=== PATIENT | male | born 1995 | race Two or more races ===

== ENCOUNTER 2019-10-28 08:59 | Emergency (ER) | payer OTHER ==
[2019-10-28 09:06] VITALS: BP 118/80; PULSE 73; TEMP 97.4; BMI 34.4
--- NOTE | 2019-10-28 09:54 | PDOC ---
History of Present Illness - General Chief Complaint: Injury Stated Complaint: FALL Time Seen by Provider: 10/28/19 09:25 History Source: Patient - History of Present Illness Initial Comments: 10/28/19 11:08 24 year old male [place] c/o left ankle pain reports falling in a hole while at work c/o left ankle pain worse with weight bearing Past History - Past Medical History Allergies/Adverse Reactions: Allergies Allergy/AdvReac Type Severity Reaction Status Date / Time No Known Allergies Allergy Verified 10/28/19 09:06 COPD: No - Psycho Social/Smoking Cessation Hx Smoking History: Never smoked Hx Alcohol Use: No Drug/Substance Use Hx: No Review of Systems - Review of Systems Able to Perform ROS?: Yes Is the patient limited Greek proficient: No Constitutional: No: Symptoms Reported, See HPI, Chills, Diaphoresis, Fever, Loss of Appetite, Malaise, Night Sweats, Weakness, Weight Stable, Unintentional Wgt. Loss, Unexplained wgt Loss, Other *Physical Exam - Vital Signs Last Vital Signs Temp Pulse Resp BP Pulse Ox 97.4 F L 73 16 118/80 99 10/28/19 09:04 10/28/19 09:04 10/28/19 09:04 10/28/19 09:04 10/28/19 09:04 - Physical Exam General Appearance: Yes: Appropriately Dressed Musculoskeletal: positive: Normal Inspection, Other (right ankle pain, full rom no deformity) Extremity: positive: Normal Capillary Refill, Normal Range of Motion Neurologic: positive: Fully Oriented, Alert, Normal Mood/Affect ED Progress Note - Progress Note Progress Note: 10/28/19 13:19 left ankle sprain P: xray: no acute fracture ortho follow up RICE ankle stirrup given Discharge - Discharge Information Problems reviewed: Yes Clinical Impression/Diagnosis: Left ankle sprain Qualifiers: Encounter type: initial encounter Involved ligament of ankle: posterior talofibular ligament Qualified Code(s): S93.492A - Sprain of other ligament of left ankle, initial encounter Disposition: HOME - Follow up/Referral Referrals: Charles Ozuna MD [Staff Physician] - Call tomorrow - Patient Discharge Instructions Patient Printed Discharge Instructions: Ankle Sprain Additional Instructions: Apply ice to the area for the first 24 hours. Then alternate with ice and heat after. Take ibuprofen every 6 hours as needed for pain. Follow-up with an orthopedic doctor if symptoms persist. A referral was given to you today. Return to the emergency room for any worsening symptoms. - Post Discharge Activity Work/Back to School Note: Back to Work
[2019-10-28] MEDS ORDERED: IBUPROFEN 600 MG TABLET (FP) PO ONE ×2 (09:55→10:17)
== END 2019-10-28 11:29 | disposition home or self-care (01) ==
LOC: JERFT 08:59
DX: S93.492A Sprain of other ligament of left ankle, initial encounter (principal); W17.2XXA Fall into hole, initial encounter; Y93.89 Activity, other specified; Y92.89 Other specified places as the place of occurrence of the external cause; Y99.0 Civilian activity done for income or pay
CPT/HCPCS: 73610-TC-LT-FY; 73630-TC-LT; 99282-25

== ENCOUNTER 2020-11-17 12:28 | Inpatient (IN) | payer BC, OTHER ==
[2020-11-17] MEDS ORDERED: DEXAMETHASONE SOD PHOSPHATE 10 MG/1 ML VIAL IVPUSH ONE (12:41)
[2020-11-17] MEDS ORDERED: SODIUM CHLORIDE 0.9% 500 ML INFUS.BAG IV ONE (12:46)
[2020-11-17] MEDS ORDERED: DEXAMETHASONE SOD PHOSPHATE 10 MG/1 ML VIAL ONE (12:50)
[2020-11-17] MEDS ORDERED: ACETAMINOPHEN INJECTION 100 ML IVPB ONE (12:50)
[2020-11-17] MEDS ORDERED: ACETAMINOPHEN 1000 MG/100 ML BAG IVPB ONE (12:55)
[2020-11-17 13:36] LABS: INR 1.24 (0.83-1.09); PROTHROMBIN TIME (PATIENT) 15.2 SEC (9.7-13.0)
[2020-11-17 13:37] LABS: BASO % 0.4 % (0-2.0); HEMATOCRIT 47.3 % (35.4-49); HEMOGLOBIN 15.8 GM/dL (11.7-16.9); LYMPH % 10.7 % (8-40); MCH 27.4 pg (25.7-33.7); MCHC 33.5 g/dl (32.0-35.9); MEAN CELL VOLUME 81.8 fl (80-96); MEAN PLT VOLUME 7.7 fl (7.5-11.1); MONO % 7.4 % (3.8-10.2); NEUT % 81.5 % (42.8-82.8); PLATELET COUNT 264 K/MM3 (134-434); RBC 5.78 M/mm3 (4.00-5.60); RDW 13.1 % (11.9-15.9); WHITE BLOOD COUNT 12.7 K/mm3 (4.0-10.0)
[2020-11-17 13:47] LABS: CHLORIDE 98 mmol/L (98-107); SODIUM 133 mmol/L (136-145)
[2020-11-17 13:49] LABS: CALCIUM 8.6 mg/dL (8.5-10.1)
[2020-11-17 13:50] LABS: ALBUMIN 3.3 g/dl (3.4-5.0); ANION GAP 6 MMOL/L (8-16); CO2 29 mmol/L (21-32); GLUCOSE,RANDOM 89 mg/dL (74-106); MAGNESIUM 2.5 mg/dL (1.8-2.4)
[2020-11-17 13:53] LABS: CREATININE 1.2 mg/dL (0.55-1.3); SGOT/AST 22 U/L (15-37); SGPT/ALT 36 U/L (13-61)
[2020-11-17 13:55] LABS: ALK PHOS 67 U/L (45-117); TOT PROT 7.6 g/dl (6.4-8.2)
[2020-11-17 13:57] LABS: LDH 236 U/L (87-246)
[2020-11-17 14:03] LABS: BILIRUBIN,TOTAL 0.4 mg/dL (0.2-1)
[2020-11-17] MEDS ORDERED: AZITHROMYCIN IVPB 500 MG/250 ML BAG IVPB ONE ×2 (18:47→19:15)
[2020-11-17] MEDS ORDERED: ACETAMINOPHEN 325 MG TABLET (FP) PO PRN (18:49)
[2020-11-17] MEDS ORDERED: ALBUTEROL SO4 HFA INHALER IH PRN (18:51)
[2020-11-17] MEDS ORDERED: DEXAMETHASONE SOD PHOSPHATE 4 MG/1 ML VIAL ONE (19:14)
[2020-11-17] MEDS ORDERED: CHOLECALCIFEROL (VIT D3) 1,000 UNIT (25 MCG) TABLET ONE (19:14)
[2020-11-17] MEDS: DEXAMETHASONE SOD PHOSPHATE 4 MG/1 ML VIAL IVPUSH SCH (19:25)
[2020-11-17] MEDS: CHOLECALCIFEROL (VIT D3) 1,000 UNIT (25 MCG) TABLET PO SCH (19:25)
[2020-11-17] MEDS ORDERED: ASCORBIC ACID 500 MG TABLET (FP) ONE (22:13)
[2020-11-17] MEDS ORDERED: ZINC SULFATE 220 MG CAPSULE (FP) ONE (22:14)
[2020-11-17] MEDS: ASCORBIC ACID 500 MG TABLET (FP) PO SCH (22:16)
[2020-11-17] MEDS: ZINC SULFATE 220 MG CAPSULE (FP) PO SCH (22:16)
[2020-11-18 08:24] LABS: BASO % 0.2 % (0-2.0); CHLORIDE 104 mmol/L (98-107); HEMATOCRIT 45.1 % (35.4-49); HEMOGLOBIN 15.2 GM/dL (11.7-16.9); LYMPH % 7.4 % (8-40); MCH 27.5 pg (25.7-33.7); MCHC 33.8 g/dl (32.0-35.9); MEAN CELL VOLUME 81.1 fl (80-96); MEAN PLT VOLUME 7.4 fl (7.5-11.1); MONO % 4.4 % (3.8-10.2); PLATELET COUNT 251 K/MM3 (134-434); RBC 5.55 M/mm3 (4.00-5.60); RDW 12.9 % (11.9-15.9); SODIUM 139 mmol/L (136-145); WHITE BLOOD COUNT 13.1 K/mm3 (4.0-10.0)
[2020-11-18 08:27] LABS: CALCIUM 8.3 mg/dL (8.5-10.1)
[2020-11-18 08:28] LABS: ANION GAP 8 MMOL/L (8-16); BLOOD UREA NITROGEN 18.7 mg/dL (7-18); CO2 28 mmol/L (21-32); GLUCOSE,RANDOM 128 mg/dL (74-106)
[2020-11-18 08:31] LABS: CREATININE 0.7 mg/dL (0.55-1.3); SGOT/AST 15 U/L (15-37); SGPT/ALT 37 U/L (13-61)
[2020-11-18 08:33] LABS: BILIRUBIN,TOTAL 0.4 mg/dL (0.2-1); TOT PROT 7.2 g/dl (6.4-8.2)
[2020-11-18 08:34] LABS: ALK PHOS 67 U/L (45-117)
[2020-11-18] MEDS: DEXAMETHASONE SOD PHOSPHATE 4 MG/1 ML VIAL IVPUSH SCH (09:35)
[2020-11-18] MEDS: ENOXAPARIN NA (PORCINE) 40 MG/0.4 ML DISP.SYRIN SQ SCH (09:35)
[2020-11-18] MEDS: ZINC SULFATE 220 MG CAPSULE (FP) PO SCH ×3 (09:35→21:01)
[2020-11-18] MEDS: ASCORBIC ACID 500 MG TABLET (FP) PO SCH ×4 (09:35→21:01)
[2020-11-18] MEDS: CHOLECALCIFEROL (VIT D3) 1,000 UNIT (25 MCG) TABLET PO SCH (09:36)
[2020-11-18] MEDS: AZITHROMYCIN IVPB 250 MG in DEXTROSE 5%-WATER - 250 ML IVPB SCH (10:17)
[2020-11-18] MEDS ORDERED: REMDESIVIR 200 MG in SODIUM CHLORIDE 210 ML IVPB ONE (17:00)
[2020-11-19 09:21] LABS: BASO % 0.5 % (0-2.0); HEMATOCRIT 43.5 % (35.4-49); HEMOGLOBIN 14.2 GM/dL (11.7-16.9); LYMPH % 5.4 % (8-40); MCH 26.9 pg (25.7-33.7); MCHC 32.7 g/dl (32.0-35.9); MEAN CELL VOLUME 82.2 fl (80-96); MEAN PLT VOLUME 7.9 fl (7.5-11.1); MONO % 4.3 % (3.8-10.2); NEUT % 89.8 % (42.8-82.8); PLATELET COUNT 293 K/MM3 (134-434); RBC 5.29 M/mm3 (4.00-5.60); WHITE BLOOD COUNT 25.4 K/mm3 (4.0-10.0)
[2020-11-19 09:25] LABS: ALBUMIN 2.8 g/dl (3.4-5.0); BLOOD UREA NITROGEN 14.5 mg/dL (7-18); CALCIUM 8.1 mg/dL (8.5-10.1)
[2020-11-19 09:28] LABS: CREATININE 0.9 mg/dL (0.55-1.3)
[2020-11-19 09:30] LABS: BILIRUBIN,TOTAL 0.3 mg/dL (0.2-1); TOT PROT 6.7 g/dl (6.4-8.2)
[2020-11-19] MEDS ORDERED: PT OWN MED DRAWER 7, Y5N ONE ×2 (09:48→09:53)
[2020-11-19] MEDS: ASCORBIC ACID 500 MG TABLET (FP) PO SCH ×2 (09:51→22:17)
[2020-11-19] MEDS: ENOXAPARIN NA (PORCINE) 40 MG/0.4 ML DISP.SYRIN SQ SCH (09:51)
[2020-11-19] MEDS: DEXAMETHASONE SOD PHOSPHATE 4 MG/1 ML VIAL IVPUSH SCH (09:51)
[2020-11-19] MEDS: ZINC SULFATE 220 MG CAPSULE (FP) PO SCH ×2 (09:51→22:17)
[2020-11-19] MEDS: CHOLECALCIFEROL (VIT D3) 1,000 UNIT (25 MCG) TABLET PO SCH (09:51)
[2020-11-19] MEDS: AZITHROMYCIN IVPB 250 MG in DEXTROSE 5%-WATER - 250 ML IVPB SCH (10:55)
[2020-11-19 14:28] VITALS: BMI 36.1
[2020-11-19] MEDS: REMDESIVIR 100 MG in SODIUM CHLORIDE 230 ML IVPB SCH (16:51)
[2020-11-20 09:36] LABS: BASO % 0.2 % (0-2.0); HEMATOCRIT 43.3 % (35.4-49); HEMOGLOBIN 14.4 GM/dL (11.7-16.9); LYMPH % 12.6 % (8-40); MCH 27.3 pg (25.7-33.7); MCHC 33.3 g/dl (32.0-35.9); MEAN CELL VOLUME 82.1 fl (80-96); MEAN PLT VOLUME 7.8 fl (7.5-11.1); NEUT % 80.2 % (42.8-82.8); PLATELET COUNT 299 K/MM3 (134-434); RBC 5.28 M/mm3 (4.00-5.60); RDW 13.4 % (11.9-15.9); WHITE BLOOD COUNT 13.1 K/mm3 (4.0-10.0)
[2020-11-20 10:15] LABS: CALCIUM 8.1 mg/dL (8.5-10.1)
[2020-11-20] MEDS ORDERED: PT OWN MED DRAWER 7, Y5N ONE (10:15)
[2020-11-20 10:16] LABS: ALBUMIN 2.8 g/dl (3.4-5.0); BLOOD UREA NITROGEN 18.2 mg/dL (7-18)
[2020-11-20] MEDS: ZINC SULFATE 220 MG CAPSULE (FP) PO SCH ×2 (10:16→22:24)
[2020-11-20] MEDS: CHOLECALCIFEROL (VIT D3) 1,000 UNIT (25 MCG) TABLET PO SCH (10:17)
[2020-11-20] MEDS: ASCORBIC ACID 500 MG TABLET (FP) PO SCH ×2 (10:17→22:24)
[2020-11-20 10:19] LABS: CREATININE 0.8 mg/dL (0.55-1.3)
[2020-11-20 10:20] LABS: BILIRUBIN,TOTAL 1.1 mg/dL (0.2-1)
[2020-11-20] MEDS ORDERED: DEXAMETHASONE SOD PHOSPHATE 10 MG/1 ML VIAL ONE (10:20)
[2020-11-20 10:21] LABS: TOT PROT 6.8 g/dl (6.4-8.2)
[2020-11-20] MEDS: DEXAMETHASONE SOD PHOSPHATE 4 MG/1 ML VIAL IVPUSH SCH (10:23)
[2020-11-20] MEDS: AZITHROMYCIN IVPB 250 MG in DEXTROSE 5%-WATER - 250 ML IVPB SCH (10:23)
[2020-11-20] MEDS: ENOXAPARIN NA (PORCINE) 40 MG/0.4 ML DISP.SYRIN SQ SCH (10:24)
[2020-11-20] MEDS: REMDESIVIR 100 MG in SODIUM CHLORIDE 230 ML IVPB SCH (16:44)
[2020-11-21] MEDS ORDERED: PT OWN MED DRAWER 7, Y5N ONE (10:11)
[2020-11-21] MEDS: ASCORBIC ACID 500 MG TABLET (FP) PO SCH (10:13)
[2020-11-21] MEDS: ZINC SULFATE 220 MG CAPSULE (FP) PO SCH (10:13)
[2020-11-21] MEDS: CHOLECALCIFEROL (VIT D3) 1,000 UNIT (25 MCG) TABLET PO SCH (10:14)
[2020-11-21] MEDS: DEXAMETHASONE SOD PHOSPHATE 4 MG/1 ML VIAL IVPUSH SCH (10:14)
[2020-11-21] MEDS: ENOXAPARIN NA (PORCINE) 40 MG/0.4 ML DISP.SYRIN SQ SCH (10:15)
[2020-11-21] MEDS: AZITHROMYCIN IVPB 250 MG in DEXTROSE 5%-WATER - 250 ML IVPB SCH (10:24)
[2020-11-21 15:18] VITALS: BP 104/55; PULSE 60; TEMP 97.7
[2020-11-21] MEDS: REMDESIVIR 100 MG in SODIUM CHLORIDE 230 ML IVPB SCH ×2 (17:10→17:11)
== END 2020-11-21 18:17 | disposition home or self-care (01) | DRG 177 ==
LOC: JER 12:28 → JERBED 15:35 → J8W 11-18 03:17
PROVIDERS: ADMIT Internal Medicine; ATTEND Internal Medicine
PROC: XW033E5 Introduction of Remdesivir Anti-infective into Peripheral Vein, Percutaneous Approach, New Technology Group 5 (ICD-10-PCS; principal; 2020-11-18)
PROC: XW13325 Transfusion of Convalescent Plasma (Nonautologous) into Peripheral Vein, Percutaneous Approach, New Technology Group 5 (ICD-10-PCS; 2020-11-18)
DX: U07.1 COVID-19 (principal); J12.82 Pneumonia due to coronavirus disease 2019; J96.00 Acute respiratory failure, unspecified whether with hypoxia or hypercapnia
CPT/HCPCS: 36415; 36430; 71046-TC-FY; 80053; 82550; 82728; 83615; 83735; 84484; 85025; 85379; 85610; 86140; 86850; 86900; 86901; 87426; 93005; 93010; 99285-25; C9399; J0131; J1100; P9017

== ENCOUNTER 2024-02-25 14:39 | Emergency (ER) | payer OTHER, BC ==
[2024-02-25 14:45] VITALS: BP 128/69; PULSE 68; RESP 18; TEMP 98; BMI 38.7
[2024-02-25] MEDS ORDERED: IBUPROFEN 600 MG TABLET (FP) PO ONE (16:04)
[2024-02-25] MEDS: IBUPROFEN 600 MG TABLET (FP) PO ONE (16:05)
== END 2024-02-25 16:15 | disposition home or self-care (01) ==
LOC: JERFT 14:39
DX: S93.492A Sprain of other ligament of left ankle, initial encounter (principal); X50.1XXA Overexertion from prolonged static or awkward postures, initial encounter
CPT/HCPCS: 73610-TC-LT-FY; 99283-25